=== PATIENT | male | born 1990 | race Two or more races ===

== ENCOUNTER 2016-09-09 17:23 | Inpatient (IN) | payer MEDICAID ==
[2016-09-09] MEDS ORDERED: Aspirin 81mg Chewable Tab PO STA (18:01)
--- NOTE | 2016-09-09 18:01 | ED Physician Chart ---
Chief Complaint/HPI - Patient Information Date Seen:: 09/09/16 Time Seen:: 17:40 Chief Complaint:: Chest Pain History of Present Illness:: onset x day of intermittent left anterior sharp, pleuritic type chest pains lasting about a few minutes; pt admits to cough, congestion, fever; no hemoptysis, chills, Abd. pain, dyspnea, A/N/V/D/C Allergies:: Allergies Allergy/AdvReac Type Severity Reaction Status Date / Time No Known Allergies Allergy Verified 09/09/16 17:40 Vitals:: Vital Signs - 8 hr 09/09/16 17:42 Temp 98.9 F HR 84 RR 15 BP 126/66 O2 Sat % 98 Historian:: Patient Review:: Nurse's Note Reviewed Review of Systems - Review of Systems General/Constitutional: Fever, No fever, No chills, No weight loss, No weakness , No diaphoresis, No edema, No loss of appetite Skin: No skin lesions, No rash, No bruising Head: No headache, No light-headedness Eyes: No loss of vision, No pain, No diplopia ENT: No earache, No nasal drainage, No sore throat, No tinnitus Neck: No neck pain, No swelling, No thyromegaly, No stiffness, No mass noted Cardio Vascular: Chest pain, No chest pain, No palpitations, No PND, No orthopnea, No edema Pulmonary: No SOB, Cough, No cough, No sputum, No wheezing GI: No nausea, No vomiting, No diarrhea, No pain, No melena, No hematochezia, No constipation, No hematemesis G/U: No dysuria, No frequency, No hematuria Musculoskeletal: No bone or joint pain, No back pain, No muscle pain Endocrine: No polyuria, No polydipsia Psychiatric: No prior psych history, No depression, No anxiety, No suicidal ideation Hematopoietic: No bruising, No lymphadenopathy Allergic/Immuno: No urticaria, No angioedema Neurological: No syncope, No focal symptoms, No weakness, No paresthesia, No headache, No seizure, No dizziness, No confusion, No vertigo Past Medical History - Past Medical History Past Medical History: No significant medical hx Family History: HTN Social History: Non Smoker, No Alcohol, No Drug Use, Single Surgical History: None Psychiatricy History: None Medication: None Physical Exam - Physical Examination General/Constitutional: Awake, Well-developed, well-nourished, Alert, No distress, GCS 15, Non-toxic appearing, Ambulatory Head: Atraumatic Eyes: Lids, conjuctiva normal, PERRL, EOMI Skin: Nl inspection, No rash, No skin lesions, No ecchymosis, Well hydrated, No lymphadenopathy ENMT: External ears, nose nl, Nasal exam nl, Lips, teeth, gums nl Neck: Nontender, Full ROM w/o pain, No JVD, No nuchal rigidity, No bruit, No mass, No stridor Respiratory: Nl effort/Exclusion, Clear to Auscultation, No Wheeze/Rhonchi/Rales Cardio Vascular: RRR, No murmur, gallop, rubs, NL S1 S2 GI: No tenderness/rebounding/guarding, No organomegaly, No hernia, Normal BS's, Nondistended, No mass/bruits, No McBurney tenderness : No CVA tenderness Extremities: No tenderness or effusion, Full ROM, normal strength in all extremities, No edema, Normal digits & nails Neuro/Psych: Alert/oriented, DTR's symmetric, Normal sensory exam, Normal motor strength, Judgement/insight normal, Mood normal, Normal gait, No focal deficits Misc: normal gait, Normal back, No paraspinal tenderness ED Septic Shock - . Is Septic Shock (SBP<90, OR Lactate>4 mmol\L) present?: No - <6hrs of presentation: Vital Signs: Vital Signs - 8 hr 09/09/16 17:42 Temp 98.9 F HR 84 RR 15 BP 126/66 O2 Sat % 98 Assessment of Lungs: Lung CTA bilateral, Ventilator, Decreased BS, Rhonchi, No Rhonchi, Rales, No Rales, Wheezing, No Wheezing, Stridor, No Stridor, Other, Documented in PE Assessment of Heart: RRR, Thrill, No thrill, Gallops, No Gallops, S3, S4, Rub, No Rub, Murmur, No Murmur, Other, Documented in PE EKG Interpretation: Documented in Result Capillary refill evaluation: Capillary refill < 2 secs, Capillary refill > 2 secs, Other, Documented in PE Skin Exam: Warm, Dry, Good Turgur, Poor Turgor, Pallor, No Pallor, Diaphoretic, No Diaphoresis, Mottled, No Mottling, Cyanotic, Edema, No Edema, Erythema, No Erythema, Other, Documented in PE Reassessment (Disposition) - Reassessment Reassessment Condition:: Improved - Diagnosis Diagnosis:: Chest Pain; Angina Pectoris - Aftercare/Follow up Instructions Aftercare/Follow-Up Instructions:: Counseled pt regarding lab results/diagnosis & need follow up, Counseled pt & family regarding lab results/diagnosis & need follow up - Patient Disposition Discharge/Transfer:: Acute Care w/in this hosp Accepting Physician:: Dr. Jackson Time Called:: 1819 Time Responded:: 18:20 Admitted to:: Telemetry Condition at Disposition:: Stable, Improved
[2016-09-09] MEDS ORDERED: Aspirin 81mg Chewable Tab ONE (18:10)
[2016-09-09 18:21] LABS: % BASOPHILS 0.8 % (0.0-2.0); % EOSINOPHILS 1.3 % (0.0-5.0); % LYMPHOCYTES 35.7 % (20.0-50.0); % MONOCYTES 11.1 % (2.0-10.0); % NEUTROPHILS 51.1 % (40.0-80.0); MEAN CELL VOLUME 84.9 fl (80-99); MEAN CORPUSCULAR HEMOGLOBIN 29.7 pg (26.0-30.0); PLATELET COUNT 199 Th/cmm (150-400); RED BLOOD COUNT 5.04 Mil/cmm (4.30-5.70)
[2016-09-09 18:29] LABS: HEMATOCRIT 42.8 % (39.0-49.0)
[2016-09-09 18:33] LABS: ANION GAP 8.8 (7.0-16.0); BUN - UREA NITROGEN 9 mg/dL (7-25); BUN/CREATININE RATIO 12.9; CALCIUM SERUM 9.5 mg/dL (8.6-10.3); CARBON DIOXIDE 27.8 mEq/L (21.0-31.0); CHLORIDE 102 mEq/L (98-107); CHOLESTEROL 146 mg/dL (<200); CREATININE - SERUM 0.7 mg/dL (0.7-1.3); GLUCOSE 105 mg/dL (70-105); POTASSIUM SERUM 3.6 mEq/L (3.5-5.1); SODIUM SERUM 135 mEq/L (136-145); TRIGLYCERIDES 61 mg/dL (<150)
[2016-09-09 18:39] LABS: BNP < 5.0 pg/mL (5.0-100.0)
[2016-09-09 18:41] LABS: INR 1.11 (0.5-1.4); PROTHROMBIN TIME (TEST) 11.1 SECONDS (9.5-11.5)
[2016-09-09] MEDS ORDERED: Albuterol Nebulizer 2.5mg/3mL IH PRN (19:46)
[2016-09-09] MEDS ORDERED: Morphine Sulfate 2 mg/mL 1mL Syr IVP PRN (19:46)
[2016-09-09] MEDS ORDERED: Maalox 30 mL Cup PO PRN (19:46)
[2016-09-09] MEDS ORDERED: NITROGLYCERIN SPRAY 4.9 GM SL PRN (19:47)
[2016-09-09] MEDS ORDERED: D5-0.45NS 1,000 ML IV SCH (20:00)
[2016-09-09 21:25] LABS: AMPHETAMINE URINE NEGATIVE (NEGATIVE); BARBITURATES URINE NEGATIVE (NEGATIVE)
[2016-09-09] MEDS ORDERED: Pneumococcal Vaccine 0.5 mL Vial IM ONE (23:49)
[2016-09-10 05:01] VITALS: BP 115/76
[2016-09-10 05:12] LABS: CORRECTED WBC 6.3 Th/cmm; HEMATOCRIT 41.6 % (39.0-49.0); HEMOGLOBIN 14.5 gm/dL (13.2-17.3); RED BLOOD COUNT 4.85 Mil/cmm (4.30-5.70); WHITE BLOOD COUNT 6.3 Th/cmm (4.8-10.8)
[2016-09-10 05:13] LABS: % EOSINOPHILS 2.2 % (0.0-5.0); % LYMPHOCYTES 38.7 % (20.0-50.0); % MONOCYTES 12.5 % (2.0-10.0); % NEUTROPHILS 46.6 % (40.0-80.0); MEAN CELL VOLUME 85.9 fl (80-99); MEAN CORPUSCULAR HEMOGLOBIN 29.8 pg (26.0-30.0); MEAN CORPUSCULAR HGB CONC 34.7 pg (28.0-36.0); MEAN PLATELET VOLUME 8.8 fl; PLATELET COUNT 190 Th/cmm (150-400); RED CELL DISTRIBUTION WIDTH 12.2 % (11.5-20.0)
[2016-09-10 05:53] LABS: ANION GAP 10.7 (7.0-16.0); BUN - UREA NITROGEN 8 mg/dL (7-25); CARBON DIOXIDE 26.8 mEq/L (21.0-31.0); CHLORIDE 104 mEq/L (98-107); GLUCOSE 105 mg/dL (70-105); POTASSIUM SERUM 3.5 mEq/L (3.5-5.1); SODIUM SERUM 138 mEq/L (136-145)
[2016-09-10 05:54] LABS: BUN/CREATININE RATIO 11.4; CALCIUM SERUM 9.2 mg/dL (8.6-10.3); CREATININE - SERUM 0.7 mg/dL (0.7-1.3); MAGNESIUM 2.2 mg/dL (1.9-2.7)
[2016-09-10] MEDS ORDERED: Aspirin 325 mg EC PO SCH (09:00)
--- NOTE | 2016-09-10 11:20 | Diagnostic Imaging Report ---
Portable chest x-ray History: Pain Allowing for portable technique the heart size is normal. No focal pulmonary parenchymal processes. No hilar or mediastinal abnormalities. Impression: No acute abnormalities.
[2016-09-10] MEDS ORDERED: Promethazine DM 6.25/15mg-5mL 5 ML SYR PO PRN (12:26)
--- NOTE | 2016-09-10 12:56 | Internal Medicine Prog Note ---
Internal Medicine Subjective - Subjective Service Date: 09/10/16 ([facility] dictated [id number]) Internal Medicine Objective - Results Result Diagrams: 09/10/16 04:00 09/10/16 04:00 Recent Labs: Laboratory Last Values WBC 6.3 Th/cmm (4.8-10.8) D 09/10/16 04:00 Corrected WBC (auto) 6.3 Th/cmm 09/10/16 04:00 RBC 4.85 Mil/cmm (4.30-5.70) 09/10/16 04:00 Hgb 14.5 gm/dL (13.2-17.3) 09/10/16 04:00 Hct 41.6 % (39.0-49.0) 09/10/16 04:00 MCV 85.9 fl (80-99) 09/10/16 04:00 MCH 29.8 pg (26.0-30.0) 09/10/16 04:00 MCHC Differential 34.7 pg (28.0-36.0) 09/10/16 04:00 RDW 12.2 % (11.5-20.0) 09/10/16 04:00 Plt Count 190 Th/cmm (150-400) 09/10/16 04:00 MPV 8.8 fl 09/10/16 04:00 Neutrophils % 46.6 % (40.0-80.0) 09/10/16 04:00 Lymphocytes % 38.7 % (20.0-50.0) 09/10/16 04:00 Monocytes % 12.5 % (2.0-10.0) H 09/10/16 04:00 Eosinophils % 2.2 % (0.0-5.0) 09/10/16 04:00 Basophils % 0.0 % (0.0-2.0) 09/10/16 04:00 PT 11.1 SECONDS (9.5-11.5) 09/09/16 18:09 INR 1.11 (0.5-1.4) 09/09/16 18:09 Sodium 138 mEq/L (136-145) 09/10/16 04:00 Potassium 3.5 mEq/L (3.5-5.1) 09/10/16 04:00 Chloride 104 mEq/L (98-107) 09/10/16 04:00 Carbon Dioxide 26.8 mEq/L (21.0-31.0) 09/10/16 04:00 Anion Gap 10.7 (7.0-16.0) 09/10/16 04:00 BUN 8 mg/dL (7-25) 09/10/16 04:00 Creatinine 0.7 mg/dL (0.7-1.3) 09/10/16 04:00 Est GFR ( Amer) > 60.0 ml/min 09/10/16 04:00 Est GFR (Non-Af Amer) > 60.0 ml/min 09/10/16 04:00 BUN/Creatinine Ratio 11.4 09/10/16 04:00 Glucose 105 mg/dL (70-105) 09/10/16 04:00 Calcium 9.2 mg/dL (8.6-10.3) 09/10/16 04:00 Magnesium 2.2 mg/dL (1.9-2.7) 09/10/16 04:00 Creatine Kinase 94 U/L (30-223) 09/09/16 18:09 Troponin I 0.01 ng/mL (0.01-0.05) 09/10/16 04:00 B-Natriuretic Peptide < 5.0 pg/mL (5.0-100.0) L 09/09/16 18:09 Triglycerides 61 mg/dL (<150) 09/09/16 18:09 Cholesterol 146 mg/dL (<200) 09/09/16 18:09 LDL Cholesterol Direct 98 mg/dL (75-193) 09/09/16 18:09 HDL Cholesterol 46 mg/dL (23-92) 09/09/16 18:09 TSH 4.42 uIU/ml (0.34-5.60) 09/10/16 04:00 Urine Opiates Screen NEGATIVE (NEGATIVE) 09/09/16 20:00 Ur Barbiturates Screen NEGATIVE (NEGATIVE) 09/09/16 20:00 Ur Phencyclidine Scrn NEGATIVE (NEGATIVE) 09/09/16 20:00 Amphetamines Screen NEGATIVE (NEGATIVE) 09/09/16 20:00 U Methamphetamines Scrn NEGATIVE (NEGATIVE) 09/09/16 20:00 U Benzodiazepines Scrn NEGATIVE (NEGATIVE) 09/09/16 20:00 U Cocaine Metab Screen NEGATIVE (NEGATIVE) 09/09/16 20:00 U Cannabinoids Screen NEGATIVE (NEGATIVE) 09/09/16 20:00 - Physical Exam Vitals and I&O: Vital Signs Temp 97.6 F 09/10/16 10:00 Pulse 76 09/10/16 10:00 Resp 17 09/10/16 10:00 BP 135/76 09/10/16 10:00 Pulse Ox 98 09/10/16 10:00 Intake & Output 09/09/16 09/10/16 09/10/16 18:59 06:59 18:59 Intake Total 0 Balance 0 Intake: Oral 0 Other: # Voids 1 Stool Characteristics Soft Active Medications: Current Medications Acetaminophen (Tylenol) 650 mg PO Q4HR PRN PRN Reason: Mild-Mod. Pain or Fever >101 Stop: 11/08/16 19:45 Al Hydrox/Mg Hydrox/Simethicone (Maalox) 30 ml PO Q6HR PRN PRN Reason: Constipation Stop: 11/08/16 19:45 Albuterol Sulfate (Albuterol 2.5mg/3ml Neb Ud) 2.5 mg IH Q2HR PRN PRN Reason: Shortness of Breath or Wheeze Stop: 11/08/16 19:45 Aspirin (Ecotrin) 325 mg PO DAILY [facility] Stop: 11/09/16 08:59 Last Admin: 09/10/16 08:19 Dose: 325 mg Clonidine HCl (Catapres) 0.1 mg PO Q6HR PRN PRN Reason: SBP GREATER THAN 160 Stop: 11/08/16 19:45 Heparin Sodium (Porcine) (Heparin) 5,000 units SUBQ Q12HR MEL Stop: 11/08/16 20:59 Last Admin: 09/10/16 08:19 Dose: 5,000 units Dextrose/Sodium Chloride (D5-0.45ns) 1,000 mls @ 100 mls/hr IV .Q10H [facility] Stop: 11/08/16 19:59 Last Admin: 09/09/16 22:20 Dose: 100 mls/hr Meclizine HCl (Antivert) 25 mg PO DAILY PRN PRN Reason: Nausea / Vomiting Stop: 11/08/16 19:45 Morphine Sulfate (Morphine) 2 mg IVP Q4HR PRN PRN Reason: Pain (Severe) Stop: 11/08/16 19:45 Nitroglycerin (Nitrolingual) 1 sprays SL Q5MIN PRN PRN Reason: Chest Pain Stop: 11/08/16 19:46 Ondansetron HCl (Zofran) 4 mg IV Q8H PRN PRN Reason: Nausea / Vomiting Stop: 11/08/16 19:45 Promethazine HCl/Dextromethorphan (Phenergan Dm 6.25/15mg-5 Ml) 5 ml PO BID PRN PRN Reason: Cough Stop: 11/09/16 12:25 Zolpidem Tartrate (Ambien) 10 mg PO HS PRN PRN Reason: Insomnia Stop: 11/08/16 19:45 Internal Medicine Assmt/Plan - Assessment Assessment: CHEST PAIN R/O ACS ACUTE BRONCHITIS
--- NOTE | 2016-09-10 15:10 | History & Physical ---
CHIEF COMPLAINT: Chest pain and congestion. HISTORY OF PRESENT ILLNESS: This is a 26-year-old male who has been having a 1-day history of sharp pleuritic chest pain associated with shortness of breath and productive cough. The patient denied any fevers, any chills, any hemoptysis. The patient states that he recently travelled outside of the this year to [place]. For this reason, the patient is now admitted to the telemetry unit. PAST MEDICAL HISTORY: None per patient. FAMILY HISTORY: High blood pressure. SOCIAL HISTORY: Denies any smoking, drinking alcohol or any street drugs. PAST SURGICAL HISTORY: None per patient. MEDICATIONS: None. ALLERGIES: No known drug allergies. REVIEW OF SYSTEMS: GENERAL: Denies any fevers, any chills. CARDIOVASCULAR: Denies any chest pain. RESPIRATORY: Admits to cough. SKIN: Denies any skin lesions. GASTROINTESTINAL: Denies any nausea or vomiting or any diarrhea. GENITOURINARY: He denies any dysuria. All other systems are reviewed by me and they are negative. PHYSICAL EXAMINATION: GENERAL: The patient is well developed, well nourished, in no acute distress. VITAL SIGNS: Temperature 98.7, heart rate 81, blood pressure 125/76, respirations 16, O2 98%. HEENT: Head; normocephalic, atraumatic. NECK: Supple. No mass. LUNGS: Few rhonchi bilaterally upon auscultation. HEART: Regular rate and rhythm. No murmurs or gallops. SKIN: Intact, warm and dry to touch. ABDOMEN: Soft, nontender, nondistended. Positive bowel sounds in all 4 quadrants. LABORATORY DATA: WBC 6.3, H and H 14.5 and 41.6. Sodium 138, potassium 3.5, chloride 104, carbon dioxide ____, BUN 8, creatinine 0.7. The patient had a chest x-ray done in the ER and the impression is no acute abnormalities. ASSESSMENT: 1. Chest pain, rule out acute coronary syndrome. 2. Acute bronchitis. PLAN: The patient will be admitted to the telemetry unit. The patient will have a consultation with Dr. Star La. The patient will be kept on a cardiac diet. The patient to be monitored on the orthopaedic general. The patient will be on IV fluids for hydration. The patient will be on aspirin. We will continue to monitor the patient. If no indication and if cleared by cardio, will consider patient for discharge. [facility]# [id number]
--- NOTE | 2016-09-11 02:42 | Consultation ---
The patient of Dr. Jackson. HISTORY AND PHYSICAL: This is a 26-year-old male patient who has upper respiratory tract infection. Following this, the patient started complaining of chest wall pain mostly on the right side and following this, the patient is admitted. No history of PND or orthopnea. PAST MEDICAL HISTORY: Unremarkable. FAMILY HISTORY: Unremarkable. SOCIAL HISTORY: No history of smoking or alcohol abuse. ALLERGIES: None. PHYSICAL EXAMINATION: VITAL SIGNS: Blood pressure 128/82, pulse 78, respirations 28, and temperature 98. HEAD: Normocephalic. No lumps or bumps. EYES: Pupils are equal and reactive to light. Fundi show AV nicking, sclerae white, and conjunctivae pink. NECK: Carotid 2+. Normal upstroke. JVD flat. Thyroid not palpable. Lymph nodes not palpable. CHEST: Shows increased AP diameter. No kyphosis or scoliosis. LUNGS: Bilateral bronchovesicular breath sounds. HEART: PMI in fifth intercostal space with lateral to midclavicular line. S1, S2. No S3, S4. Systolic murmur, grade 2/6, lower left sternal border without radiation. ABDOMEN: Soft. Liver and spleen not palpable. No organomegaly. Bowel sounds active. NEUROLOGIC: Unremarkable. EXTREMITIES: Peripheral pulses 2+. No pedal edema. CLINICAL IMPRESSION: 1. Acute bronchitis. 2. Chest pain secondary to bronchitis. PLAN: The patient to continue present care. Give the patient cough syrup t.i.d. JOB# [id number]
[2016-09-11 12:17] LABS: FOLIC ACID 18.8 ng/mL (>3.0)
== END 2016-09-10 16:40 | disposition home or self-care (01) | DRG 144 ==
LOC: ER 17:23 → TELE 18:40 → UNDOADMIN 18:40
PROVIDERS: ADMIT Internal Medicine; ATTEND Internal Medicine
DX: J20.9 Acute bronchitis, unspecified (principal); I25.119 Atherosclerotic heart disease of native coronary artery with unspecified angina pectoris; Z82.49 Family history of ischemic heart disease and other diseases of the circulatory system
CPT/HCPCS: 36415-UA; 71010-TC; 80048-TC; 80061-TC; 82550-TC; 82607-90; 82746-90; 83735-TC; 83880-TC; 84443-TC; 84484-TC; 85025-TC; 85610-TC; 93005; 94760; J1644; Z7610